=== PATIENT | female | born 1995 | race Caucasian/White ===

== ENCOUNTER 2023-10-11 14:32 | Emergency (ER) | payer OTHER ==
[~2023-10-11 14:32] MED LIST: Iopamidol 612 MG/ML 100 ML Bottle IV PRN; Sodium Chloride 0.9% 100 ML IV SCH
[2023-10-11] MEDS ORDERED: Iopamidol 612 MG/ML 100 ML Bottle IV PRN (15:26)
[2023-10-11] MEDS ORDERED: Sodium Chloride 0.9% 80 ML IV SCH (15:30)
[2023-10-11] MEDS ORDERED: fentaNYL 50 MCG/ML SDV ONE (15:42)
[2023-10-11] MEDS: fentaNYL 100 MCG/2 ML SDV IVPUSH ONE (15:49)
[2023-10-11] MEDS: Sodium Chloride 0.9% 10 ML Syringe FLUSH PRN (15:50)
== END 2023-10-11 16:59 | disposition home or self-care (01) ==
LOC: JP.ED 14:32
DX: S40.012A Contusion of left shoulder, initial encounter (principal); S19.9XXA Unspecified injury of neck, initial encounter; Z79.899 Other long term (current) drug therapy; Z88.0 Allergy status to penicillin; V58.0XXA Driver of pick-up truck or van injured in noncollision transport accident in nontraffic accident, initial encounter; Y92.410 Unspecified street and highway as the place of occurrence of the external cause
CPT/HCPCS: 71260; 72125; 76377; 96374; 99284; J3010; J3490